=== PATIENT | female | born 1940 | race Caucasian/White ===

== ENCOUNTER → 2023-10-21 | Outpatient (CLI) | payer MEDICARE | END | disposition home or self-care (01) | LOC: RAH 12:06 | PROVIDERS: ATTEND Internal Medicine | DX: M48.56XA Collapsed vertebra, not elsewhere classified, lumbar region, initial encounter for fracture (principal); M41.85 Other forms of scoliosis, thoracolumbar region; M54.59 Other low back pain; M81.0 Age-related osteoporosis without current pathological fracture; I70.0 Atherosclerosis of aorta | CPT/HCPCS: 72082; 72100 ==